=== PATIENT | female | born 1955 | race Caucasian/White ===

== ENCOUNTER 2016-10-09 13:57 | Emergency (ER) | payer OTHER ==
[~2016-10-09] VITALS: Ht 160 cm; Wt 117.0 kg
[~2016-10-09 13:57] MED LIST: ATORVASTATIN CA40 MG PO; AVELOX400 MG PO; BAYER ASPIRIN E81 MG PO; GLUCOVANCE PO; IMDUR30 MG PO; LASIX 40 MG40 MG/TAB PO; LEVEMIR1000 UNITS SC; LEXAPRO20 MG PO; METOPROL TAR25 MG PO; PLAVIX75 MG PO; PROTONIX40 M2 PO
[2016-10-09] MEDS ORDERED: LANTUS100 UNIT/M SC (14:08)
[2016-10-09] MEDS ORDERED: DEXILANT30 MG PO (14:09)
[2016-10-09] MEDS ORDERED: METFORMIN500 MG PO (14:11)
[2016-10-09] MEDS ORDERED: LEXAPRO10 MG PO (14:16)
[2016-10-09] MEDS ORDERED: NAPROSYN500 MG PO (15:11)
[2016-10-09 15:20] VITALS: BP 129/74
== END 2016-10-09 15:20 | disposition home or self-care (01) | DRG 563 ==
LOC: ED 13:57
DX: S93.401A Sprain of unspecified ligament of right ankle, initial encounter (principal); X50.1XXA Overexertion from prolonged static or awkward postures, initial encounter; Y93.F9 Activity, other caregiving; Y92.238 Other place in hospital as the place of occurrence of the external cause

== ENCOUNTER 2017-10-19 06:09 | Day surgery (SDC) | payer OTHER ==
[~2017-10-19 06:09] MED LIST changes: +DEXILANT30 MG PO; +LANTUS100 UNIT/M SC; +LEXAPRO10 MG PO; +METFORMIN500 MG PO; +NAPROSYN500 MG PO
[2017-10-19 09:12] VITALS: BP 119/59
== END 2017-10-19 15:55 | disposition home or self-care (01) | DRG 392 ==
LOC: ENDO 06:09 → ORM 07:00 → ENDO 08:37
PROVIDERS: ATTEND Internal Medicine Gastroenterology
PROC: 0DBH8ZX Excision of Cecum, Via Natural or Artificial Opening Endoscopic, Diagnostic (ICD-10-PCS; principal; 2017-10-19)
PROC: 0DBE8ZX Excision of Large Intestine, Via Natural or Artificial Opening Endoscopic, Diagnostic (ICD-10-PCS; 2017-10-19)
PROC: 0D758ZZ Dilation of Esophagus, Via Natural or Artificial Opening Endoscopic (ICD-10-PCS; 2017-10-19)
PROC: 0DB58ZX Excision of Esophagus, Via Natural or Artificial Opening Endoscopic, Diagnostic (ICD-10-PCS; 2017-10-19)
DX: K57.30 Diverticulosis of large intestine without perforation or abscess without bleeding (principal); K63.3 Ulcer of intestine; K64.8 Other hemorrhoids; K63.5 Polyp of colon; K64.4 Residual hemorrhoidal skin tags; K21.9 Gastro-esophageal reflux disease without esophagitis; K29.50 Unspecified chronic gastritis without bleeding; K22.8 Other specified diseases of esophagus; K44.9 Diaphragmatic hernia without obstruction or gangrene; K22.2 Esophageal obstruction; E11.9 Type 2 diabetes mellitus without complications; E78.5 Hyperlipidemia, unspecified; F41.9 Anxiety disorder, unspecified; F32.9 Major depressive disorder, single episode, unspecified; I25.10 Atherosclerotic heart disease of native coronary artery without angina pectoris; I11.0 Hypertensive heart disease with heart failure; I50.9 Heart failure, unspecified; G47.30 Sleep apnea, unspecified; Z90.49 Acquired absence of other specified parts of digestive tract; Z85.41 Personal history of malignant neoplasm of cervix uteri; Z80.0 Family history of malignant neoplasm of digestive organs; Z95.5 Presence of coronary angioplasty implant and graft

== ENCOUNTER → 2018-05-21 | Outpatient (REF) | payer OTHER ==
[2018-05-21 12:04] LABS: ANION GAP 15 (6-22 (CALC)); BUN 13 mg/dL (8-23); BUN/CREATININE RATIO 17 (12-20 (CALC)); CARBON DIOXIDE 28 mmol/l (22-30); CHLORIDE 100 mmol/l (95-108); CREATININE 0.8 mg/dL (0.5-1.0); GFR > 60 ML/MIN (>=60 (CALC)); GFR FOR AFR.AMER. > 60 ML/MIN (>=60 (CALC)); POTASSIUM 4.3 mmol/l (3.5-5.1); SODIUM 139 mmol/l (137-146)
== END | disposition home or self-care (01) | DRG 700 ==
LOC: LAB 11:14
PROVIDERS: ATTEND Nurse Practitioner Family
DX: E11.29 Type 2 diabetes mellitus with other diabetic kidney complication (principal); I10 Essential (primary) hypertension